=== PATIENT | female | born 1955 | race Two or more races ===

== ENCOUNTER 2021-08-29 06:31 | Outpatient (CLI) | payer OTHER | END 2021-08-29 06:36 | disposition home or self-care (01) | LOC: LAB 06:31 | PROVIDERS: ATTEND Internal Medicine | DX: U07.1 COVID-19 (principal); B34.1 Enterovirus infection, unspecified ==

== ENCOUNTER 2021-08-29 07:04 | Outpatient (CLI) | payer OTHER | END 2021-08-29 07:50 | disposition home or self-care (01) | LOC: SONOGRAMA 07:04 | DX: I34.0 Nonrheumatic mitral (valve) insufficiency (principal); R22.1 Localized swelling, mass and lump, neck; I87.2 Venous insufficiency (chronic) (peripheral); E78.2 Mixed hyperlipidemia; R73.01 Impaired fasting glucose; N18.2 Chronic kidney disease, stage 2 (mild); E55.9 Vitamin D deficiency, unspecified; R06.02 Shortness of breath; R00.2 Palpitations; R07.2 Precordial pain ==

== ENCOUNTER 2021-08-29 07:15 | Outpatient (CLI) | payer OTHER | END 2021-08-29 07:17 | disposition home or self-care (01) | LOC: NUCLEAR 07:15 | DX: I34.0 Nonrheumatic mitral (valve) insufficiency (principal); R22.1 Localized swelling, mass and lump, neck; I87.2 Venous insufficiency (chronic) (peripheral); R20.2 Paresthesia of skin; E78.2 Mixed hyperlipidemia; R73.01 Impaired fasting glucose; N18.2 Chronic kidney disease, stage 2 (mild); E55.9 Vitamin D deficiency, unspecified; R06.02 Shortness of breath; R00.2 Palpitations; R07.2 Precordial pain; M81.0 Age-related osteoporosis without current pathological fracture ==

== ENCOUNTER 2022-03-13 14:14 | Outpatient (CLI) | payer OTHER | END 2022-03-13 14:16 | disposition home or self-care (01) | LOC: LAB 14:14 | PROVIDERS: ATTEND Radiology Diagnostic Radiology | DX: E78.2 Mixed hyperlipidemia (principal) ==

== ENCOUNTER 2022-03-20 07:53 | Outpatient (CLI) | payer OTHER | END 2022-03-20 08:00 | disposition home or self-care (01) | LOC: TOM 07:53 | DX: I11.9 Hypertensive heart disease without heart failure (principal); I34.0 Nonrheumatic mitral (valve) insufficiency; I65.23 Occlusion and stenosis of bilateral carotid arteries; I70.0 Atherosclerosis of aorta; I87.2 Venous insufficiency (chronic) (peripheral); I70.213 Atherosclerosis of native arteries of extremities with intermittent claudication, bilateral legs; E78.2 Mixed hyperlipidemia; E11.22 Type 2 diabetes mellitus with diabetic chronic kidney disease; N18.2 Chronic kidney disease, stage 2 (mild); E55.9 Vitamin D deficiency, unspecified; R06.02 Shortness of breath; I50.32 Chronic diastolic (congestive) heart failure; I35.1 Nonrheumatic aortic (valve) insufficiency; I36.1 Nonrheumatic tricuspid (valve) insufficiency; Z86.73 Personal history of transient ischemic attack (TIA), and cerebral infarction without residual deficits | CPT/HCPCS: 71260; 71275; Q9965 ==